=== PATIENT | female | born 1975 | race Caucasian/White ===

== ENCOUNTER 2016-11-30 05:44 | Emergency (ER) | payer MEDICAID ==
[~2016-11-30] VITALS: Ht 157.5 cm; Wt 76.2 kg
[2016-11-30 06:41] LABS: BASOPHIL % 0.6 % (0-2); PLATELET COUNT 256 x10^3mcL (130-400)
[2016-11-30 06:45] LABS: CALCIUM 8.3 mg/dL (8.5-10.1); CARBON DIOXIDE 27.3 mmol/L (21-32); CHLORIDE SERUM 106 mmol/L (98-107); CREATININE SERUM 0.7 mg/dL (0.6-1.0); GFR1 > 60 mL/min; GLUCOSE SERUM 130 mg/dL (74-106); POTASSIUM SERUM 3.6 mmol/L (3.5-5.1); SODIUM SERUM 141 mmol/L (136-145)
[2016-11-30 06:48] LABS: ALBUMIN 3.6 g/dL (3.4-5.0); ALKALINE PHOSPHATASE 71 U/L (46-116); ALT/SGPT 26 U/L (14-59); AST/SGOT 28 U/L (15-37); BILIRUBIN TOTAL 0.4 mg/dL (0.20-1.00); LIPASE 115 IU/L (73-393); TOTAL PROTEIN, SERUM 7.1 g/dL (6.4-8.2)
[2016-11-30 06:49] LABS: RED CELL DISTRIBUTION WIDTH 15.4 % (11.5-14.5)
[2016-11-30 07:15] VITALS: BP 101/59
== END 2016-11-30 07:19 | disposition home or self-care (01) ==
LOC: ED 05:44
PROVIDERS: Emergency Medicine
DX: R10.11 Right upper quadrant pain (principal); N39.0 Urinary tract infection, site not specified
CPT/HCPCS: 36415; J1885; Q0162

== ENCOUNTER 2017-08-22 21:27 | Emergency (ER) | payer MEDICAID ==
[~2017-08-22] VITALS: Ht 152.4 cm; Wt 74.8 kg
[2017-08-22 21:38] VITALS: Ht 152.4 cm; Wt 74.8 kg
[2017-08-22 22:58] LABS: microscopic required? YES; urine erythrocyte TRACE (NEGATIVE)
[2017-08-22 23:43] VITALS: BP 112/73
== END 2017-08-22 23:43 | disposition home or self-care (01) ==
LOC: ED 21:27
PROVIDERS: Emergency Medicine
DX: R39.89 Other symptoms and signs involving the genitourinary system (principal)

== ENCOUNTER 2017-09-06 03:46 | Inpatient (IN) | payer MEDICAID ==
[~2017-09-06] VITALS: Ht 152.4 cm; Wt 78.5 kg
[2017-09-06 03:52] VITALS: Ht 152.4 cm; Wt 78.5 kg
[2017-09-06 04:38] LABS: UA SPECIFIC GRAVITY >=1.030 (1.005-1.035); microscopic required? YES; urine erythrocyte 3+ (NEGATIVE)
[2017-09-06 04:39] LABS: BASOPHIL % 0.6 % (0-2); PLATELET COUNT 279 x10^3mcL (130-400)
[2017-09-06 04:40] LABS: RED CELL DISTRIBUTION WIDTH 15.9 % (11.5-14.5)
[2017-09-06 04:49] LABS: CALCIUM 8.2 mg/dL (8.5-10.1); CARBON DIOXIDE 27.9 mmol/L (21-32); CHLORIDE SERUM 102 mmol/L (98-107); CREATININE SERUM 0.6 mg/dL (0.6-1.0); GFR1 > 60 mL/min; GLUCOSE SERUM 119 mg/dL (74-106); POTASSIUM SERUM 3.4 mmol/L (3.5-5.1); SODIUM SERUM 130 mmol/L (136-145)
[2017-09-06 04:56] LABS: ALBUMIN 3.4 g/dL (3.4-5.0); ALKALINE PHOSPHATASE 76 U/L (46-116); ALT/SGPT 20 U/L (14-59); AST/SGOT 20 U/L (15-37); BILIRUBIN TOTAL 0.3 mg/dL (0.20-1.00); LIPASE 123 IU/L (73-393); MAGNESIUM 2.3 mg/dL (1.8-2.4); TOTAL PROTEIN, SERUM 6.7 g/dL (6.4-8.2)
[2017-09-06 05:43] LABS: CHOLESTEROL/HDL RATIO 3.9; PHOSPHOROUS 3.4 mg/dL (2.5-4.9)
[2017-09-06 05:51] LABS: T3 TOTAL 1.12 ng/mL
[2017-09-06 05:54] LABS: FREE T4 0.92 ng/dL (0.76-1.46); FREE THYROXINE INDEX 2.6 ug/dL (1.4-4.5); T4(THYROXINE) 7.5 ug/dL (4.7-13.3)
[2017-09-06 06:33] VITALS: BP 103/64
[2017-09-06 09:34] VITALS: BP 115/73
[2017-09-06 13:26] VITALS: BP 115/69
[2017-09-06 16:22] VITALS: BP 111/58
[2017-09-06 18:45] LABS: AMPHETAMINE QUAL UR NONE DETECTED (NEG <=1000)
[2017-09-06 20:17] VITALS: BP 123/64
[2017-09-07 05:22] VITALS: BP 103/48
[2017-09-07 06:30] LABS: BASOPHIL % 0.7 % (0-2); PLATELET COUNT 283 x10^3mcL (130-400)
[2017-09-07 06:43] LABS: CARBON DIOXIDE 26.7 mmol/L (21-32); CHLORIDE SERUM 108 mmol/L (98-107); CREATININE SERUM 0.6 mg/dL (0.6-1.0); GFR1 > 60 mL/min; GLUCOSE SERUM 85 mg/dL (74-106); MAGNESIUM 2.2 mg/dL (1.8-2.4); PHOSPHOROUS 3.2 mg/dL (2.5-4.9); POTASSIUM SERUM 3.7 mmol/L (3.5-5.1); SODIUM SERUM 142 mmol/L (136-145)
[2017-09-07 06:50] LABS: RED CELL DISTRIBUTION WIDTH 16.4 % (11.5-14.5)
[2017-09-07] MEDS ORDERED: PRI20 PO (07:18)
[2017-09-07] MEDS ORDERED: BACTRIM DS1 TAB PO (07:18)
[2017-09-07] MEDS ORDERED: LAC PO (07:18)
[2017-09-07 07:20] VITALS: BP 108/54
[2017-09-07 11:10] VITALS: BP 108/54
== END 2017-09-07 14:30 | disposition home or self-care (01) | DRG 243 ==
LOC: ED 03:46 → DU 05:16
PROVIDERS: Emergency Medicine; Family Medicine
DX: K21.9 Gastro-esophageal reflux disease without esophagitis (principal); N17.0 Acute kidney failure with tubular necrosis; E87.1 Hypo-osmolality and hyponatremia; I10 Essential (primary) hypertension; N39.0 Urinary tract infection, site not specified; E86.0 Dehydration; R73.03 Prediabetes; E87.6 Hypokalemia; E66.9 Obesity, unspecified; E02 Subclinical iodine-deficiency hypothyroidism; D50.9 Iron deficiency anemia, unspecified; E78.5 Hyperlipidemia, unspecified; Z68.33 Body mass index [BMI] 33.0-33.9, adult; Z82.49 Family history of ischemic heart disease and other diseases of the circulatory system; Z79.899 Other long term (current) drug therapy; Z79.82 Long term (current) use of aspirin
CPT/HCPCS: 83880; 84439; J0696; J7030; Q0092

== ENCOUNTER 2018-01-01 02:00 | Inpatient (IN) | payer MEDICAID ==
[~2018-01-01] VITALS: Ht 152.4 cm; Wt 77.6 kg
[~2018-01-01 02:00] MED LIST: BACTRIM DS1 TAB PO; LAC PO; PRI20 PO
[2018-01-01 02:06] VITALS: Ht 152.4 cm; Wt 77.6 kg
[2018-01-01 02:39] LABS: BASOPHIL % 0.6 % (0-2); PLATELET COUNT 330 x10^3mcL (130-400)
[2018-01-01 02:48] LABS: CALCIUM 8.3 mg/dL (8.5-10.1); CHLORIDE SERUM 105 mmol/L (98-107); CREATININE SERUM 0.7 mg/dL (0.6-1.0); GFR1 > 60 mL/min; GLUCOSE SERUM 114 mg/dL (74-106); POTASSIUM SERUM 3.2 mmol/L (3.5-5.1); SODIUM SERUM 138 mmol/L (136-145)
[2018-01-01 02:50] LABS: RED CELL DISTRIBUTION WIDTH 16.1 % (11.5-14.5)
[2018-01-01 02:55] LABS: ALBUMIN 3.4 g/dL (3.4-5.0); ALKALINE PHOSPHATASE 70 U/L (46-116); ALT/SGPT 16 U/L (14-59); AST/SGOT 13 U/L (15-37); BILIRUBIN TOTAL 0.4 mg/dL (0.20-1.00); LIPASE 136 IU/L (73-393); TOTAL PROTEIN, SERUM 6.9 g/dL (6.4-8.2)
[2018-01-01 03:35] LABS: FREE T4 0.96 ng/dL (0.76-1.46)
[2018-01-01 06:27] VITALS: BP 105/59
[2018-01-01 06:40] LABS: microscopic required? YES; urine erythrocyte 1+ (NEGATIVE)
[2018-01-01 07:12] LABS: AMPHETAMINE QUAL UR NONE DETECTED (See below)
[2018-01-01 07:17] LABS: FREE T4 0.94 ng/dL (0.76-1.46); FREE THYROXINE INDEX 2.7 ug/dL (1.4-4.5); T4(THYROXINE) 8.3 ug/dL (4.7-13.3)
[2018-01-01 07:18] LABS: T3 TOTAL 1.22 ng/mL
[2018-01-01 08:08] LABS: PHOSPHOROUS 3.6 mg/dL (2.5-4.9)
[2018-01-01 08:09] LABS: CHOLESTEROL/HDL RATIO 3.1
[2018-01-01 09:13] VITALS: BP 92/56
[2018-01-01 10:34] VITALS: BP 105/59
[2018-01-01 13:05] VITALS: BP 98/55
[2018-01-01 16:56] VITALS: BP 98/48
[2018-01-02] VITALS (7 sets, daily range): BP systolic 100–150; BP diastolic 50–64
[2018-01-02 06:08] LABS: BASOPHIL % 0.8 % (0-2); PLATELET COUNT 265 x10^3mcL (130-400)
[2018-01-02 06:17] LABS: RED CELL DISTRIBUTION WIDTH 18.2 % (11.5-14.5)
[2018-01-02 06:34] LABS: CALCIUM 7.3 mg/dL (8.5-10.1); CARBON DIOXIDE 25.1 mmol/L (21-32); CHLORIDE SERUM 109 mmol/L (98-107); CREATININE SERUM 0.5 mg/dL (0.6-1.0); GFR1 > 60 mL/min; GLUCOSE SERUM 87 mg/dL (74-106); MAGNESIUM 1.9 mg/dL (1.8-2.4); PHOSPHOROUS 3.1 mg/dL (2.5-4.9); POTASSIUM SERUM 4.1 mmol/L (3.5-5.1); SODIUM SERUM 140 mmol/L (136-145)
[2018-01-03 06:10] LABS: BASOPHIL % 0.4 % (0-2); PLATELET COUNT 290 x10^3mcL (130-400)
[2018-01-03 06:12] VITALS: BP 133/61
[2018-01-03 06:31] LABS: CALCIUM 8.1 mg/dL (8.5-10.1); CARBON DIOXIDE 23.4 mmol/L (21-32); CHLORIDE SERUM 107 mmol/L (98-107); CREATININE SERUM 0.6 mg/dL (0.6-1.0); GFR1 > 60 mL/min; GLUCOSE SERUM 97 mg/dL (74-106); PHOSPHOROUS 3.6 mg/dL (2.5-4.9); SODIUM SERUM 140 mmol/L (136-145)
[2018-01-03 06:53] LABS: RED CELL DISTRIBUTION WIDTH 17.9 % (11.5-14.5)
[2018-01-03 10:13] VITALS: BP 107/66
[2018-01-03 12:36] VITALS: BP 94/49
[2018-01-03 12:50] VITALS: BP 103/60; BP 94/49
== END 2018-01-03 14:49 | disposition home or self-care (01) | DRG 263 ==
LOC: ED 02:00 → DU 05:17
PROVIDERS: Emergency Medicine; Family Medicine; Internal Medicine; Surgery
PROC: 0FT44ZZ Resection of Gallbladder, Percutaneous Endoscopic Approach (ICD-10-PCS; principal; 2018-01-02 10:00)
DX: K80.20 Calculus of gallbladder without cholecystitis without obstruction (principal); I95.9 Hypotension, unspecified; E83.51 Hypocalcemia; D50.0 Iron deficiency anemia secondary to blood loss (chronic); R00.1 Bradycardia, unspecified; K21.9 Gastro-esophageal reflux disease without esophagitis; E87.6 Hypokalemia; E02 Subclinical iodine-deficiency hypothyroidism; Z68.32 Body mass index [BMI] 32.0-32.9, adult
CPT/HCPCS: 83880; 84439; J0330; J0690; J1644; J1885; J2175; J2250; J2704; J2710; J2916; J3010; J3490; J7030; J7120; Q0092

== ENCOUNTER 2018-01-12 18:38 | Emergency (ER) | payer MEDICAID ==
[~2018-01-12] VITALS: Ht 152.4 cm; Wt 74.0 kg
[2018-01-12 18:53] VITALS: Ht 152.4 cm; Wt 74.0 kg
[2018-01-12 19:26] VITALS: BP 100/66
== END 2018-01-12 19:26 | disposition home or self-care (01) ==
LOC: ED 18:38
DX: S31.112D Laceration without foreign body of abdominal wall, epigastric region without penetration into peritoneal cavity, subsequent encounter (principal); S31.010D Laceration without foreign body of lower back and pelvis without penetration into retroperitoneum, subsequent encounter; Z90.49 Acquired absence of other specified parts of digestive tract; Z98.890 Other specified postprocedural states; X58.XXXD Exposure to other specified factors, subsequent encounter

== ENCOUNTER 2018-02-14 05:40 | Emergency (ER) | payer MEDICAID ==
[~2018-02-14] VITALS: Ht 152.4 cm; Wt 75.0 kg
[2018-02-14 05:47] VITALS: Ht 152.4 cm; Wt 75.0 kg
[2018-02-14 06:22] VITALS: BP 122/69
== END 2018-02-14 06:22 | disposition home or self-care (01) ==
LOC: ED 05:40
DX: J02.9 Acute pharyngitis, unspecified (principal); J36 Peritonsillar abscess; Z90.49 Acquired absence of other specified parts of digestive tract

== ENCOUNTER 2019-06-07 05:40 | Emergency (ER) | payer MEDICAID ==
[~2019-06-07] VITALS: Ht 149.9 cm; Wt 74.8 kg
[2019-06-07 05:58] VITALS: Ht 149.9 cm; Wt 74.8 kg
[2019-06-07 07:54] VITALS: BP 115/71
== END 2019-06-07 07:51 | disposition home or self-care (01) ==
LOC: ED 05:40
DX: R19.7 Diarrhea, unspecified (principal); R10.9 Unspecified abdominal pain; Z90.49 Acquired absence of other specified parts of digestive tract